=== PATIENT | female | born 1960 | race Caucasian/White ===

== ENCOUNTER 2016-12-15 00:20 | Emergency (ER) | payer OTHER ==
[~2016-12-15] VITALS: Ht 170.2 cm; Wt 133.8 kg
[2016-12-15 00:26] VITALS: BP 148/76
--- NOTE | 2016-12-15 02:12 | NUR ---
PT TAKEN TO BED 5
--- NOTE | 2016-12-15 02:14 | NUR ---
PATIENT PRESENTS TO ED WITH ABD PAIN STARTED TODAY WITH NAUSEA; SKIN IS PINK/WARM/DRY; AAOX4 WITH EVEN AND STEADY GAIT; LUNGS CLEAR BL; HR EVEN AND REGULAR; PT DENIES ANY FEVER, CP, SOB, OR COUGH AT THIS TIME; ; VSS; PATIENT POSITIONED FOR COMFORT; HOB ELEVATED; BEDRAILS UP X2; BED DOWN. ER MD MADE AWARE OF PT STATUS.
[2016-12-15] MEDS ORDERED: ONDANSETRON 4 MG/2 ML VIAL IVP ONE (02:45)
[2016-12-15] MEDS ORDERED: NACL 0.9% 500 ML IV ONE (02:45)
[2016-12-15] MEDS ORDERED: KETOROLAC 30 MG/ML VIAL IVP ONE (02:45)
--- NOTE | 2016-12-15 02:48 | NUR ---
Dr. Sarmiento evaluating patient at bedside.
[2016-12-15 03:34] LABS: HEMATOCRIT 35.4 % (36-48); HEMOGLOBIN 10.3 g/dL (12.0-16.0); MEAN CORPUSCULAR HEMOGLOBIN 21 pg (27-31); MEAN CORPUSCULAR HGB CONC 29 g/dL (33-37); MEAN CORPUSCULAR VOLUME 71 fL (80-94); PLATELET COUNT (AUTO) 225 K/uL (140-450); RED BLOOD CELL COUNT(AUTO) 5.02 MIL/uL (4.20-5.40); RED CELL DISTRIBUTION WIDTH 29.1 % (11.6-13.7); WHITE BLOOD COUNT (AUTO) 8.7 K/uL (4.8-10.8)
[2016-12-15 03:45] LABS: ANISOCYTOSIS 3+; EOSINOPHILS % (MANUAL) 8 % (0-4); LYMPHOCYTES % (MANUAL) 25 % (20-46); MONOCYTES % (MANUAL) 7 % (5-12); NEUTROPHILS % (MANUAL) 60 (43-65)
[2016-12-15 03:48] LABS: ANION GAP 12.6 (8-16); CALCIUM 8.4 mg/dL (8.5-10.1); CARBON DIOXIDE 25.3 mmol/L (21-32); CREATININE 0.9 mg/dL (0.6-1.3); POTASSIUM 3.9 mmol/L (3.5-5.1); TOTAL BILIRUBIN 0.5 mg/dL (0.0-1.0); TOTAL PROTEIN, SERUM 7.6 g/dL (6.4-8.2)
[2016-12-15 03:54] LABS: ALBUMIN 3.3 g/dL (3.4-5.0)
[2016-12-15] MEDS ORDERED: MORPHINE SULFATE 2 MG/ML SYR IVP ONE (04:05)
--- NOTE | 2016-12-15 04:30 | NUR ---
Ultrasound at bedside.
[2016-12-15 06:00] VITALS: BP 138/82
--- NOTE | 2016-12-15 06:00 | NUR ---
IV removed, catheter intact and site benign. Applied folded 4x4 gauze and tape to stop bleeding.
--- NOTE | 2016-12-15 06:00 | NUR ---
Patient discharged with v/s stable. Written and verbal after care instructions given and explained. Patient alert, oriented and verbalized understanding of instructions. Ambulatory with steady gait. All questions addressed prior to discharge. ID band removed. Patient advised to follow up with PMD. Rx of ZOFRAN ODT 4MG, PRILOSEC 40MG, NORCO 5/325MG given. Patient educated on indication of medication including possible reaction and side effects. Opportunity to ask questions provided and answered.
== END 2016-12-15 06:00 | disposition home or self-care (01) ==
LOC: MED 00:20
DX: K80.20 Calculus of gallbladder without cholecystitis without obstruction (principal); R03.0 Elevated blood-pressure reading, without diagnosis of hypertension; E66.01 Morbid (severe) obesity due to excess calories; Z68.42 Body mass index [BMI] 45.0-49.9, adult
CPT/HCPCS: 36415; 76705; 80053; 82150; 83690; 85025; 96361; 96374; 96375; 99285; J1885; J2270; J2405; J7030; Q0092

== ENCOUNTER 2019-07-06 15:26 | Inpatient (IN) | payer MEDICAID, OTHER ==
[~2019-07-06] VITALS: Ht 170.2 cm; Wt 114.3 kg
[2019-07-06] MEDS ORDERED: cloNIDine 0.1 MG TAB PO ONE (15:30)
[2019-07-06 15:35] VITALS: BP 167/69
--- NOTE | 2019-07-06 15:55 | NUR ---
58F TO ED WITH C/O SYMPTOMATIC HTN. PT REPORTS HEADACHE AND BLURRED VISION AT HOME WITH ELEVATED BP READING WITH HOME BP MACHINE. NO NEURO DEFECITS NOTED. HEALTH NURSE EQUAL. SPEECH CLEAR. NO FACIAL ASYMMETRY NOTED. IN BED FOR MD ZAMAN.
--- NOTE | 2019-07-06 15:56 | NUR ---
Dr. Espitia is evaluating the patient at the bedside.
[2019-07-06] MEDS ORDERED: ACETAMINOPHEN EXTRA STRENGTH 500 MG TAB PO ONE (16:05)
--- NOTE | 2019-07-06 16:16 | NUR ---
PT TAKEN TO CT
--- NOTE | 2019-07-06 16:27 | NUR ---
The patient returned from CT scan. RN re-evaluating patient at bedside.
[2019-07-06 16:52] LABS: BASOPHILS % (AUTO) 0.6 % (0.0-2.0); EOSINOPHILS # (AUTO) 0.2 K/uL (0-0.4); EOSINOPHILS % (AUTO) 2.9 % (0.0-4.0); HEMATOCRIT 37.6 % (36-48); HEMOGLOBIN 12.2 g/dL (12.0-16.0); LYMPHOCYTES # (AUTO) 2.4 K/uL (2.5-16.5); MEAN CORPUSCULAR HEMOGLOBIN 29 pg (27-31); MEAN CORPUSCULAR HGB CONC 33 g/dL (33-37); MEAN CORPUSCULAR VOLUME 90.6 fL (80-94); MONOCYTES # (AUTO) 0.7 K/uL (0.8-1.0); MONOCYTES % (AUTO) 8.3 % (1.7-9.3); NEUTROPHILS # (AUTO) 4.7 K/uL (1.8-7.7); NEUTROPHILS % (AUTO) 58.2 % (42.2-75.2); PLATELET COUNT (AUTO) 202 K/uL (140-450); RED BLOOD CELL COUNT(AUTO) 4.15 MIL/uL (4.20-5.40); RED CELL DISTRIBUTION WIDTH 14.2 % (11.6-13.7); WHITE BLOOD COUNT (AUTO) 8.1 K/uL (4.8-10.8)
[2019-07-06 17:36] LABS: ANION GAP 11.6 (8-16); CARBON DIOXIDE 29.1 mmol/L (21-32); POTASSIUM 3.7 mmol/L (3.5-5.1); TOTAL BILIRUBIN 0.3 mg/dL (0.0-1.0)
[2019-07-06 17:47] LABS: ALBUMIN 3.4 g/dL (3.4-5.0); CREATININE 0.7 mg/dL (0.6-1.3)
--- NOTE | 2019-07-06 17:57 | NUR ---
PT LAYING IN BED, RR EVEN AND UNLABORED. VS NOTED. HR 40-45. BP 156/72 AFTER CLONIDINE 0.2MG PO. PT REPORTS 10/10 HEADACHE DESPITE TYLENOL 1000MG PO. DR PIAZRRO MADE AWARE. ALL NEEDS MET AT THIS TIME.
[2019-07-06] MEDS ORDERED: ACETAMINOPHEN 325 MG TAB PO PRN (18:10)
[2019-07-06] MEDS ORDERED: ONDANSETRON 4 MG/2 ML VIAL IM/IVP PRN (18:10)
[2019-07-06 18:49] LABS: PROTHROMBIN TIME 10.2 secs (10.8-13.4)
[2019-07-06] MEDS ORDERED: hydrALAZINE 20 MG/ML VIAL IVP PRN (19:00)
--- NOTE | 2019-07-06 19:00 | NUR ---
Patient will be admitted to care of DR CANALES. Admited to TELE 106B. Belongings list completed. Report to MARIA ISABEL LYNN
[2019-07-06 19:15] LABS: APPEARANCE,URINE CLEAR (CLEAR); BILIRUBIN,URINE NEGATIVE (NEGATIVE); BLOOD, URINE NEGATIVE (NEGATIVE); COLOR,URINE YELLOW (YELLOW); LEUKOCYTE ESTERASE ,URINE TRACE (NEGATIVE); NITRITE, URINE NEGATIVE (NEGATIVE); UGLUCOSE NEGATIVE (NEGATIVE)
--- NOTE | 2019-07-06 19:15 | NUR ---
RECEIVED PT FROM ED VIA ESTIVEN, PT AWAKE, ALERT ORIENTED X 4. ON TELEMONITOR. WITH DX OF BRADYCARDIA. PT UPON TAKING THE V.S HR 37, BP= 143/67, TEMP 97.2; 97% O2; COMPLAINS OF DULL PAIN AT THE BACK OF THE HEAD. ORIENTED TO UNIT. FALL RISK PROTOCOL IN PLACE; WILL CONTINUE TO MONITOR
[2019-07-06 19:24] LABS: BARBITURATE, URINE NEG. ng/ml (NEG <=200); BENZODIAZEPINE, URINE NEG. ng/mL (NEG <=200); CANNABINOID, URINE NEG. ng/mL (NEG <=50); COCAINE, URINE NEG. ng/mL (NEG <=300); OPIATE, URINE POS. ng/mL (NEG <=2000); PHENCYCLIDINE SCREEN,URINE NEG. ng/mL (NEG <=25)
--- NOTE | 2019-07-06 19:30 | NUR ---
INFORMED DR. MANUEL ON THE VITAL SIGNS JAMEY THE BRADYCARDIA; ORDERED O2 VIA NASAL CANNULA AT 2LPM PRN
[2019-07-06 19:49] LABS: RBC,URINE NONE SEEN /HPF (0-5)
[2019-07-06 20:00] VITALS: BP 143/67
[2019-07-06] MEDS ORDERED: amLODIPine 5 MG TAB PO SCH (20:00)
[2019-07-06] MEDS ORDERED: LISINOPRIL 10 MG TAB PO SCH (20:00)
--- NOTE | 2019-07-06 20:00 | NUR ---
RECHECKED HR 50 BPM
[2019-07-06] MEDS: NACL 0.9% 1,000 ML IV SCH (20:18)
--- NOTE | 2019-07-06 22:15 | NUR ---
PT SLEEPING SOUNDLY; NO COMPLAINTS; STILL WITH BRADYCARDIA =[address] MANUEL AWARE, WILL CONTINUE TO MONITOR
[2019-07-06 22:53] LABS: CHOL/HDL RATIO 1.6 (1-4.5); MAGNESIUM 1.7 mg/dL (1.8-2.4); PHOSPHORUS 3.7 mg/dL (2.5-4.9)
[2019-07-06 22:54] LABS: FREE T4 (FREE THYROXINE) 1.06 ng/dL (0.76-1.46); THYROID STIMULATING HORMONE 2.15 uIU/mL (0.34-3.74)
[2019-07-07] VITALS: BP 116/60
--- NOTE | 2019-07-07 00:01 | NUR ---
PT SLEEPING SOUNDLY, NO COMPLAINTS OF HEADACHE AT THIS TIME, WILL CONTINUE TO MONITOR
--- NOTE | 2019-07-07 02:15 | NUR ---
PT STILL SLEEPING, CHECKED ON PT WILL CONTINUE TO MONITOR
[2019-07-07 04:00] VITALS: BP 124/41
--- NOTE | 2019-07-07 04:10 | NUR ---
WENT TO [facility] BATHROOM, STEADY IN GAIT, TOLERABLE HEADACHE 3/10 VERBALIZED BY PT
[2019-07-07] MEDS: KETOROLAC 15 MG/ML VIAL IVP PRN ×3 (04:51→18:16)
--- NOTE | 2019-07-07 04:51 | NUR ---
COMPLAINED OF HEADACHE 03/18 WILL REASSESS LATER
[2019-07-07] MEDS: PANTOPRAZOLE 40 MG TABEC PO SCH (06:04)
--- NOTE | 2019-07-07 06:08 | NUR ---
AWAKE; ALERT ORIENTED X 4; AMBULATORY W/ STANDBY ASSIST. PT IN STABLE CONDITION
--- NOTE | 2019-07-07 07:15 | NUR ---
RECEIVED REPORT FROM CONTAINER WASHER NURSE. PATIENT SITTING IN BED, ASSISTED TO BATHROOM AND BACK TO BED. NO DISTRESS NOTED. DENIES ANY PAIN AT THIS TIME. RESPIRATIONS EVEN, UNLABORED, ON O2 2L/MIN VIA NC. ABDOMEN SOFT, OBESE. IV SITE INTACT, PATENT, AND INFUSING IVF PER MD ORDERS. REVIEWED PLAN OF CARE WITH PATIENT. PATIENT VERBALIZED UNDERSTANDING. SAFETY MEASURES IN PLACE, CALL LIGHT WITHIN REACH. WILL CONTINUE TO MONITOR.
[2019-07-07 07:51] LABS: BASOPHILS % (AUTO) 0.7 % (0.0-2.0); EOSINOPHILS # (AUTO) 0.3 K/uL (0-0.4); HEMATOCRIT 35.2 % (36-48); HEMOGLOBIN 11.6 g/dL (12.0-16.0); LYMPHOCYTES # (AUTO) 1.9 K/uL (2.5-16.5); LYMPHOCYTES % (AUTO) 28.6 % (20.5-51.1); MEAN CORPUSCULAR HEMOGLOBIN 30 pg (27-31); MEAN CORPUSCULAR HGB CONC 33 g/dL (33-37); MEAN CORPUSCULAR VOLUME 90.8 fL (80-94); MONOCYTES # (AUTO) 0.5 K/uL (0.8-1.0); NEUTROPHILS # (AUTO) 3.9 K/uL (1.8-7.7); NEUTROPHILS % (AUTO) 58.7 % (42.2-75.2); PLATELET COUNT (AUTO) 181 K/uL (140-450); RED BLOOD CELL COUNT(AUTO) 3.87 MIL/uL (4.20-5.40); RED CELL DISTRIBUTION WIDTH 13.6 % (11.6-13.7); WHITE BLOOD COUNT (AUTO) 6.6 K/uL (4.8-10.8)
--- NOTE | 2019-07-07 07:58 | NUR ---
PATIENT HAS BEEN SCREENED AND CATEGORIZED MODERATE NUTRITION RISK. PATIENT WILL BE SEEN WITHIN 3-5 DAYS OF ADMISSION. 07/09/19 07/11/[address]
[2019-07-07 08:00] VITALS: BP 129/54
[2019-07-07 08:06] LABS: ANION GAP 11.3 (8-16); CARBON DIOXIDE 27.2 mmol/L (21-32); CREATININE 0.6 mg/dL (0.6-1.3); POTASSIUM 3.5 mmol/L (3.5-5.1)
[2019-07-07] MEDS: HYDROcodone/APAP 7.5/325 MG 1 TAB PO PRN (08:53)
[2019-07-07] MEDS: LISINOPRIL 10 MG TAB PO SCH (08:54)
[2019-07-07] MEDS: ATORVASTATIN 20 MG TAB PO SCH (08:54)
[2019-07-07] MEDS: amLODIPine 5 MG TAB PO SCH (08:55)
[2019-07-07] MEDS ORDERED: SCOPOLAMINE 1.5 MG/72 HR PATCH TD SCH (09:00)
--- NOTE | 2019-07-07 09:00 | NUR ---
SCHEDULED MEDICATIONS DUE GIVEN. WILL CONTINUE TO MONITOR.
[2019-07-07] MEDS: NACL 0.9% 1,000 ML IV SCH ×3 (09:08→23:23)
[2019-07-07 12:00] VITALS: BP 139/62
--- NOTE | 2019-07-07 12:16 | NUR ---
PATIENT COMPLAINS OF A HEADACHE, TORADOL GIVEN AT THIS TIME. WILL CONTINUE TO MONITOR.
[2019-07-07] MEDS ORDERED: MAGNESIUM OXIDE 400 MG TAB PO SCH (14:00)
--- NOTE | 2019-07-07 14:24 | NUR ---
PATIENT LYING DOWN IN BED TALKING ON THE PHONE. NO DISTRESS NOTED. SCHEDULED MEDICATIONS DUE GIVEN. WILL CONTINUE OT MONITOR.
[2019-07-07 16:00] VITALS: BP 144/55
--- NOTE | 2019-07-07 19:20 | NUR ---
GAVE REPORT TO EARLY CHILDHOOD EDUCATION INSTRUCTOR NURSE FOR CONTINUITY OF CARE. PATIENT IN STABLE CONDITION.
--- NOTE | 2019-07-07 19:21 | NUR ---
RECEIVED BEDSIDE REPORT FROM DAY SHIFT NURSENATA. PATIENT SITTING IN BED. NO DISTRESS NOTED. DENIES ANY PAIN AT THIS TIME. RESPIRATIONS EVEN, UNLABORED ON ROOM AIR. ABDOMEN SOFT, OBESE. IV SITE ON RFA, 20G, INTACT, PATENT, AND ASYMPTOMATIC. REVIEWED PLAN OF CARE WITH PATIENT. PATIENT VERBALIZED UNDERSTANDING. SAFETY MEASURES IN PLACE, CALL LIGHT WITHIN REACH. WILL CONTINUE TO MONITOR.
[2019-07-07 20:00] VITALS: BP 149/75
--- NOTE | 2019-07-07 20:10 | NUR ---
GIVEN HEPARIN MD ORDERED. PT TOLERATED WELL. WILL CONTINUE TO MONITOR.
--- NOTE | 2019-07-07 22:05 | NUR ---
PT WALKING AROUND UNIT. PT STATES NO DIZZINESS NOTED. STEADY GAIT. NO ACUTE DISTRESS NOTED. WILL CONTINUE TO MONITOR.
[2019-07-08] VITALS: BP 100/56
[2019-07-08] MEDS: KETOROLAC 15 MG/ML VIAL IVP PRN ×2 (00:05→06:14)
--- NOTE | 2019-07-08 00:05 | NUR ---
PT C/O HEADACHE, GIVEN TORADOL MD ORDERED. PT TOLERATED WELL. VS CHECKED, WITHIN PT'S BASELINE. WILL CONTINUE TO MONITOR.
--- NOTE | 2019-07-08 02:02 | NUR ---
PT SLEEPING IN BED. NO ACUTE DISTRESS NOTED. BED IN LOW POSITION, CALL LIGHT WITHIN REACH.
[2019-07-08 04:00] VITALS: BP 144/45
--- NOTE | 2019-07-08 04:09 | NUR ---
VS CHECKED. WITHIN PT'S BASELINE. BED IN LOW POSITION. CALL LIGHT WITHIN REACH.
[2019-07-08] MEDS: HYDROcodone/APAP 7.5/325 MG 1 TAB PO PRN (04:29)
--- NOTE | 2019-07-08 04:29 | NUR ---
PT C/O 02/16 HEADACHE. GIVEN NORCO MD ORDERED. PT TOLERATED WELL.
[2019-07-08] MEDS: PANTOPRAZOLE 40 MG TABEC PO SCH (06:13)
--- NOTE | 2019-07-08 06:14 | NUR ---
GIVEN PROTONIX. PT C/O HEADACHE, GIVEN TORADOL MD ORDERED. PT TOLERATE WELL.
--- NOTE | 2019-07-08 06:40 | NUR ---
PT SLEEPING IN BED. NO ACUTE DISTRESS NOTED.
--- NOTE | 2019-07-08 07:15 | NUR ---
RECEIVED REPORT FROM EKG MONITOR TECH. PATIENT LYING DOWN IN BED SLEEPING, AROUSABLE BY VOICE. NO DISTRESS NOTED. DENIES ANY PAIN. AAOX4, CALM, COOPERATIVE, SKIN COLOR APPROPRIATE TO ETHNICITY, WARM TO TOUCH. SKIN INTACT. IV SITE INTACT, PATENT, AND INFUSING IVF PER MD ORDERS. ABDOMEN SOFT, NON-DISTENDED. RESPIRATIONS EVEN, UNLABORED, ON ROOM AIR. REVIEWED PLAN OF CARE WITH PATIENT. PATIENT VERBALIZED UNDERSTANDING. SAFETY MEASURES IN PLACE, CALL LIGHT WITHIN REACH. WILL CONTINUE TO MONITOR.
[2019-07-08 08:00] VITALS: BP 146/56
[2019-07-08] MEDS ORDERED: APAP/BUTAL/CAFF 325/50/40 MG 1 TAB PO PRN (08:20)
[2019-07-08] MEDS: ATORVASTATIN 20 MG TAB PO SCH (08:49)
[2019-07-08] MEDS: amLODIPine 5 MG TAB PO SCH (08:50)
[2019-07-08] MEDS: LISINOPRIL 10 MG TAB PO SCH (08:50)
--- NOTE | 2019-07-08 08:57 | NUR ---
PATIENT LYING DOWN IN BED SLEEPING, AROUSABLE BY VOICE. NO DISTRESS NOTED. DENIES ANY PAIN. SCHEDULED MEDICATIONS DUE GIVEN. WILL CONTINUE TO MONITOR.
[2019-07-08] MEDS ORDERED: LACTULOSE 20 GM/30 ML UDC PO SCH (09:15)
[2019-07-08 09:22] LABS: BASOPHILS % (AUTO) 0.5 % (0.0-2.0); EOSINOPHILS # (AUTO) 0.3 K/uL (0-0.4); EOSINOPHILS % (AUTO) 4.6 % (0.0-4.0); HEMATOCRIT 37.7 % (36-48); HEMOGLOBIN 12.2 g/dL (12.0-16.0); LYMPHOCYTES # (AUTO) 1.9 K/uL (2.5-16.5); LYMPHOCYTES % (AUTO) 29.2 % (20.5-51.1); MEAN CORPUSCULAR HEMOGLOBIN 29 pg (27-31); MEAN CORPUSCULAR HGB CONC 32 g/dL (33-37); MEAN CORPUSCULAR VOLUME 90.5 fL (80-94); MONOCYTES # (AUTO) 0.5 K/uL (0.8-1.0); MONOCYTES % (AUTO) 8.2 % (1.7-9.3); NEUTROPHILS # (AUTO) 3.8 K/uL (1.8-7.7); NEUTROPHILS % (AUTO) 57.5 % (42.2-75.2); PLATELET COUNT (AUTO) 191 K/uL (140-450); RED BLOOD CELL COUNT(AUTO) 4.16 MIL/uL (4.20-5.40); RED CELL DISTRIBUTION WIDTH 14.2 % (11.6-13.7); WHITE BLOOD COUNT (AUTO) 6.7 K/uL (4.8-10.8)
[2019-07-08] MEDS ORDERED: LISI10TA11 PO ×2 (09:25→11:46)
[2019-07-08] MEDS ORDERED: AMLO5TAB6 PO ×2 (09:25→11:46)
[2019-07-08] MEDS ORDERED: SCOP1PAT TD (09:25)
[2019-07-08] MEDS ORDERED: FIO PO (09:25)
[2019-07-08] MEDS ORDERED: ATOR20TA40 PO ×2 (09:25→11:46)
--- NOTE | 2019-07-08 09:32 | NUR ---
PATIENT SITTING IN BED TALKING ON THE PHONE. NO DISTRESS NOTED. DENIES ANY PAIN. SCHEDULED MEDICATIONS DUE GIVEN. WILL CONTINUE TO MONITOR.
[2019-07-08] MEDS ORDERED: SCOP1PAT TP ×2 (09:49→11:46)
[2019-07-08 09:59] LABS: ANION GAP 12.1 (8-16); CARBON DIOXIDE 25.4 mmol/L (21-32); CREATININE 0.6 mg/dL (0.6-1.3); POTASSIUM 3.5 mmol/L (3.5-5.1)
[2019-07-08 10:08] LABS: MAGNESIUM 1.7 mg/dL (1.8-2.4); PHOSPHORUS 4.2 mg/dL (2.5-4.9)
--- NOTE | 2019-07-08 12:17 | NUR ---
DISCHARGE INSTRUCTIONS PROVIDED TO PATIENT IN PREFERRED LANGUAGE OF TAIWANESE. INSTRUCTIONS ON NEW/CHANGED MEDICATION REGIMEN AND SIDE EFFECTS, DIET REGIMEN, DISEASE MANAGEMENT OF BRADYCARDIA, AND FOLLOW-UP WITH PCP WITH DR. BECERRIL. ANSWERED ALL OF PATIENT'S QUESTIONS REGARDING DISCHARGE. PATIENT VERBALIZED COMPLETE UNDERSTANDING. IV SITE REMOVED WITH MINIMAL BLOOD AND LUMEN COMPLETELY INTACT. PATIENT TO GET DRESSED AND THEN READY TO DISCHARGE. DAUGHTER TO COME AIR CARRIER MAINTENANCE INSPECTOR PATIENT SOON. WILL CONTINUE TO MONITOR.
--- NOTE | 2019-07-08 14:00 | NUR ---
PATIENT DONE EATING LUNCH. ALL BELONGINGS WITH PATIENT. PATIENT'S DAUGHTER AT BEDSIDE READY TO TAKE PATIENT HOME IN PRIVATE VEHICLE. PATIENT DISCHARGED AT THIS TIME TO HOME IN STABLE CONDITION.
== END 2019-07-08 14:00 | disposition home or self-care (01) | DRG 199 ==
LOC: MED 15:26 → MTU 18:11 → MMU 19:19 → MTU 19:21 → MMU 19:24 → MTU 19:26
PROVIDERS: ADMIT General Practice; ATTEND General Practice
DX: I10 Essential (primary) hypertension (principal); E87.0 Hyperosmolality and hypernatremia; E66.01 Morbid (severe) obesity due to excess calories; R00.1 Bradycardia, unspecified; E78.5 Hyperlipidemia, unspecified; E83.42 Hypomagnesemia; K21.9 Gastro-esophageal reflux disease without esophagitis; Z68.39 Body mass index [BMI] 39.0-39.9, adult; Z98.84 Bariatric surgery status
CPT/HCPCS: 36415; 70450; 71045; 80048; 80053; 80305; 81001; 82140; 82550; 82553; 82948; 83036; 83605; 83690; 83735; 83880; 84100; 84439; 84443; 84484; 85025; 85610; 85730; 87081; 87086; 93005; 93880; 99285; J1644; J1885; J7030; Q0092

== ENCOUNTER 2019-09-02 16:19 | Inpatient (IN) | payer MEDICAID ==
[~2019-09-02] VITALS: Ht 170.2 cm; Wt 113.4 kg
[~2019-09-02 16:19] MED LIST: AMLO5TAB6 PO; ATOR20TA40 PO; FIO PO; LISI10TA11 PO; SCOP1PAT TP
[2019-09-02 16:39] VITALS: BP 126/57
--- NOTE | 2019-09-02 16:50 | NUR ---
PT AMB TO BED 10
--- NOTE | 2019-09-02 17:02 | NUR ---
C/O PRODUCTIVE COUGH & SOB X 2 DAYS. NO EXACERBATING OR RELIEVING FACTORS FOR SOB. STATES RHINORRHEA, NASAL CONGESTION, BODY ACHE. DENIES N/V. TOOK TYLENOL LAST NIGHT FOR SUBJECTIVE FEVER. HAD FLU VACCINE THIS YEAR. 96% RA. MED HX: LYMPHEDEMA, HTN, GOUT, GASTRIC BY PASS ALLEGY: IBUPREFEN & ANTIBIOTIC ???
--- NOTE | 2019-09-02 17:06 | NUR ---
DR PIZARRO EVALUATING PT AT BEDSIDE
[2019-09-02] MEDS ORDERED: hydrOXYzine HCL 25 MG TAB PO ONE (17:15)
[2019-09-02] MEDS ORDERED: FUROSEMIDE 40 MG/4 ML VIAL IVP ONE (17:15)
[2019-09-02] MEDS ORDERED: ALBUTEROL SULFATE/IPRATROPIU 3 ML SOL IH ONE (17:15)
[2019-09-02] MEDS ORDERED: CAPTOPRIL 12.5 MG TAB PO ONE (17:15)
--- NOTE | 2019-09-02 17:23 | NUR ---
GENERAL ENGINEER AND RT AT BEDSIDE.
--- NOTE | 2019-09-02 17:26 | NUR ---
[facility] THERAPY AND RESPPIRATORY DRUG GIVEN ORDERED ENCOURAGED PATIENT FOR INTERMITTENT DEEP BREATHING DURING THERAPY
[2019-09-02 17:42] LABS: BASOPHILS % (AUTO) 0.3 % (0.0-2.0); EOSINOPHILS # (AUTO) 0.2 K/uL (0-0.4); EOSINOPHILS % (AUTO) 1.6 % (0.0-4.0); HEMATOCRIT 38.9 % (36-48); HEMOGLOBIN 12.6 g/dL (12.0-16.0); LYMPHOCYTES % (AUTO) 19.4 % (20.5-51.1); MEAN CORPUSCULAR HEMOGLOBIN 29 pg (27-31); MEAN CORPUSCULAR HGB CONC 32 g/dL (33-37); MEAN CORPUSCULAR VOLUME 89.3 fL (80-94); MONOCYTES # (AUTO) 0.7 K/uL (0.8-1.0); MONOCYTES % (AUTO) 6.8 % (1.7-9.3); NEUTROPHILS # (AUTO) 7.6 K/uL (1.8-7.7); NEUTROPHILS % (AUTO) 71.9 % (42.2-75.2); PLATELET COUNT (AUTO) 215 K/uL (140-450); RED BLOOD CELL COUNT(AUTO) 4.35 MIL/uL (4.20-5.40); RED CELL DISTRIBUTION WIDTH 13.9 % (11.6-13.7); WHITE BLOOD COUNT (AUTO) 10.5 K/uL (4.8-10.8)
[2019-09-02 18:01] LABS: PROTHROMBIN TIME 13.1 secs (10.8-13.4)
[2019-09-02 18:17] LABS: C-REACTIVE PROTEIN QUANT 1.8 mg/dL (0.0-0.9)
[2019-09-02 18:18] LABS: MAGNESIUM 1.6 mg/dL (1.8-2.4); URIC ACID 5.3 mg/dL (2.6-7.2)
[2019-09-02 18:21] LABS: ANION GAP 14.7 (8-16); CARBON DIOXIDE 25.9 mmol/L (21-32); CREATININE 0.7 mg/dL (0.6-1.3); POTASSIUM 3.6 mmol/L (3.5-5.1)
[2019-09-02 18:22] LABS: ALBUMIN 3.2 g/dL (3.4-5.0); TOTAL BILIRUBIN 0.4 mg/dL (0.0-1.0)
--- NOTE | 2019-09-02 18:27 | NUR ---
PT WILL SEND DAUGHTER HOME TO GET MED LIST.
[2019-09-02] MEDS ORDERED: NACL 0.9% 1,000 ML IV SCH (19:09)
[2019-09-02] MEDS ORDERED: MORPHINE SULFATE 2 MG/ML SYR IVP PRN (19:10)
[2019-09-02] MEDS ORDERED: DOCUSATE SODIUM 100 MG GELCAP PO PRN (19:10)
[2019-09-02] MEDS ORDERED: ONDANSETRON 4 MG/2 ML VIAL IM/IVP PRN (19:10)
[2019-09-02] MEDS ORDERED: ACETAMINOPHEN 325 MG TAB PO PRN (19:10)
[2019-09-02] MEDS ORDERED: LORazepam 2 MG/ML VIAL IM/IVP PRN (19:10)
[2019-09-02] MEDS ORDERED: ALBUTEROL SULFATE/IPRATROPIU 3 ML SOL IH PRN (19:15)
--- NOTE | 2019-09-02 19:15 | NUR ---
REPORT TO HARI LYNN. TRANSFER OF CARE AT THIS TIME.
[2019-09-02] MEDS ORDERED: LISI-420 PO (19:29)
[2019-09-02] MEDS ORDERED: ATOR10TA PO (19:29)
[2019-09-02] MEDS ORDERED: HYDR-5092 PO (19:29)
[2019-09-02] MEDS ORDERED: OMEP20TC12 PO (19:29)
[2019-09-02] MEDS ORDERED: DOCU-300 PO (19:29)
[2019-09-02 20:13] LABS: CHOL/HDL RATIO 1.6 (1-4.5); MAGNESIUM 1.7 mg/dL (1.8-2.4); PHOSPHORUS 3.2 mg/dL (2.5-4.9); THYROID STIMULATING HORMONE 0.78 uIU/mL (0.34-3.74)
--- NOTE | 2019-09-02 20:37 | NUR ---
RECEIVED BEDSIDE REPORT FROM ER NURSE. PATIENT IS AWAKE, ALERT, AND COOPERATIVE. ADMITTING DIAGNOSIS DYSPNEA, CARDIAC BRADYARRHYTHMIA. RESPIRATION EVEN UNLABORED ON ROOM AIR. NO DISTRESS NOTED. DENIES CHEST PAIN. SKIN IS WARM AND DRY. IV PATENT AND INTACT. HEART RATE REGULAR. S1&S2 NOTE. LUNGS SOUNDS CLEAR ON AUSCULTATION. BOWEL SOUNDS PRESENTS IN ALL QUADRANTS. ABDOMEN SOFT AND NON-TENDER. LAST BM 09/02/19. BLE PITTING EDEMA + 1 NOTED. MRSA SCREEN DONE. VITALS WERE TAKEN. ORIENT TO THE ROOM, STAFF, AND CALL LIGHT. PLAN OF CARE WAS DISCUSSED. ALL SAFETY MEASURES IN PLACE. BED IS AT LOW POSITION. CALL LIGHT WITHIN REACH AND VERBALIZE ITS USE. WILL CONTINUE TO MONITOR.
--- NOTE | 2019-09-02 20:37 | NUR ---
Patient will be admitted to care of [facility]. Admited to TELEMETRY. Will go to room 121 A. Belongings list completed. Report to TRINIDAD LYNN.
[2019-09-02] MEDS: HYDROcodone/APAP 5/325 MG 1 TAB TAB PO PRN (21:20)
--- NOTE | 2019-09-02 21:20 | NUR ---
PATIENT COMPLAINED OF GENERALIZED PAIN 6/10. PRN PAIN MED ADMINISTERED PER ORDER. WILL CONTINUE TO MONITOR
[2019-09-02] MEDS: ZOLPIDEM 5 MG TAB PO PRN (21:58)
--- NOTE | 2019-09-02 21:58 | NUR ---
PATIENT COMPLAINED CANT FALL ASLEEP. PRN SLEEPING AID ADMINISTERED PER ORDER. WILL CONTINUE TO MONITOR.
[2019-09-02 22:35] VITALS: BP 144/72
--- NOTE | 2019-09-02 23:30 | NUR ---
PATIENT IS TALKING ON THE PHONE NO DISTRESS NOTED. WILL CONTINUE TO MONITOR.
[2019-09-03] VITALS: BP 115/48
[2019-09-03] MEDS ORDERED: MAG SULF 2000 MG/WATER PREMIX 50 ML IV SCH
--- NOTE | 2019-09-03 00:10 | NUR ---
VITALS WERE TAKEN. PATIENT IN STABLE CONDITION. NO DISTRESS NOTED. WILL CONTINUE TO MONITOR.
--- NOTE | 2019-09-03 01:37 | NUR ---
MAGNESIUM SULFATE GIVEN PER ORDER. PATIENT COMPLAINING OF BURNING PAIN. NOTIFIED MD. . ORDERED TO STOP MAGNESIUM. WILL CONTINUE TO MONITOR.
[2019-09-03] MEDS ORDERED: MAGNESIUM OXIDE 400 MG TAB PO SCH ×2 (02:00→10:35)
[2019-09-03] MEDS: HYDROcodone/APAP 5/325 MG 1 TAB TAB PO PRN ×4 (02:01→19:35)
--- NOTE | 2019-09-03 02:03 | NUR ---
MAG OX TAB GIVEN PER ORDER, PATIENT COMPLAINED OF GENERALIZED PAIN 02/16. PRN PAIN MED ADMINISTERED PER ORDER. WILL CONTINUE TO MONITOR.
[2019-09-03 04:00] VITALS: BP 110/46
--- NOTE | 2019-09-03 04:20 | NUR ---
VITALS WERE TAKEN. PATIENT IN STABLE CONDITION. NO DISTRESS NOTED. WILL CONTINUE TO MONITOR
[2019-09-03] MEDS: PANTOPRAZOLE 40 MG TABEC PO SCH (05:41)
[2019-09-03] MEDS ORDERED: ALBUTEROL SULFATE/IPRATROPIU 3 ML SOL IH SCH (06:00)
[2019-09-03 06:52] LABS: BASOPHILS % (AUTO) 0.1 % (0.0-2.0); EOSINOPHILS # (AUTO) 0.2 K/uL (0-0.4); EOSINOPHILS % (AUTO) 1.8 % (0.0-4.0); HEMATOCRIT 35.9 % (36-48); HEMOGLOBIN 11.7 g/dL (12.0-16.0); LYMPHOCYTES % (AUTO) 20.3 % (20.5-51.1); MEAN CORPUSCULAR HEMOGLOBIN 29 pg (27-31); MEAN CORPUSCULAR HGB CONC 33 g/dL (33-37); MEAN CORPUSCULAR VOLUME 90.4 fL (80-94); MONOCYTES # (AUTO) 0.9 K/uL (0.8-1.0); MONOCYTES % (AUTO) 8.6 % (1.7-9.3); NEUTROPHILS # (AUTO) 6.9 K/uL (1.8-7.7); NEUTROPHILS % (AUTO) 69.2 % (42.2-75.2); PLATELET COUNT (AUTO) 200 K/uL (140-450); RED BLOOD CELL COUNT(AUTO) 3.97 MIL/uL (4.20-5.40); RED CELL DISTRIBUTION WIDTH 14.1 % (11.6-13.7)
[2019-09-03 07:14] LABS: ANION GAP 13.7 (8-16); CARBON DIOXIDE 26.6 mmol/L (21-32); CREATININE 0.7 mg/dL (0.6-1.3); POTASSIUM 3.3 mmol/L (3.5-5.1)
[2019-09-03 07:14] LABS: APPEARANCE,URINE CLOUDY (CLEAR); BILIRUBIN,URINE NEGATIVE (NEGATIVE); BLOOD, URINE NEGATIVE (NEGATIVE); COLOR,URINE YELLOW (YELLOW); LEUKOCYTE ESTERASE ,URINE 1+ (NEGATIVE); NITRITE, URINE NEGATIVE (NEGATIVE); PH,URINE 5.5 (5.0-9.0); UGLUCOSE NEGATIVE (NEGATIVE)
--- NOTE | 2019-09-03 07:14 | NUR ---
ENDORSED PATIENT TO DAY SHIFT NURSE. PATIENT IN STABLE CONDITION
[2019-09-03 07:18] LABS: BARBITURATE, URINE NEG. ng/ml (NEG <=200); BENZODIAZEPINE, URINE NEG. ng/mL (NEG <=200); CANNABINOID, URINE NEG. ng/mL (NEG <=50); COCAINE, URINE NEG. ng/mL (NEG <=300); OPIATE, URINE POS. ng/mL (NEG <=2000); PHENCYCLIDINE SCREEN,URINE NEG. ng/mL (NEG <=25)
[2019-09-03 07:21] LABS: MAGNESIUM 1.7 mg/dL (1.8-2.4)
--- NOTE | 2019-09-03 07:25 | NUR ---
RECEIVED BEDSIDE REPORT FROM MACHINE CLOTHING WORKER NURSE, PT IS ASLEEP, NO S/S OF ACUTE DISTRESS NOTED. PT IS ON ROOM AIR, SKIN IS INTACT. IV SITE R WRIST 20 G, INFUSING NS 60 ML/HR. FALL PRECAUTIONS ARE IN PLACE. CALL LIGHT IS WITHIN REACH. WILL CONTINUE TO MONITOR.
[2019-09-03 07:34] LABS: RBC,URINE 0-5 /HPF (0-5)
[2019-09-03 08:00] VITALS: BP 138/48
--- NOTE | 2019-09-03 08:25 | NUR ---
PT IS HAVING BLE US AT THIS TIME
--- NOTE | 2019-09-03 09:07 | NUR ---
PATIENT HAS BEEN SCREENED AND CATEGORIZED HIGH NUTRITION RISK. PATIENT WILL BE SEEN WITHIN 1-2 DAYS OF ADMISSION. 09/03/19-09/04/[address]
[2019-09-03] MEDS ORDERED: BENZONATATE 100 MG CAPLF PO SCH (09:25)
[2019-09-03] MEDS: LISINOPRIL 20 MG TAB PO SCH (09:37)
[2019-09-03] MEDS: amLODIPine 5 MG TAB PO SCH (09:37)
--- NOTE | 2019-09-03 09:40 | NUR ---
AM MEDS ADMINISTERED, PT TOLERATED WELL. PT C/O 05/19 GENERALIZED PAIN, PRN NORCO ADMINISTERED. WILL REASSESS WITHIN AN HOUR. PT HAVING A BM AT THIS TIME.
--- NOTE | 2019-09-03 09:46 | NUR ---
DR MCCURDY MADE AWARE OF PT'S POTASSIUM 3.3, AND MAG 1.7.
[2019-09-03] MEDS ORDERED: AZITHROMYCIN 250 MG TAB PO SCH (10:34)
[2019-09-03] MEDS ORDERED: POTASSIUM CHLORIDE 10 MEQ TABER PO SCH (10:35)
--- NOTE | 2019-09-03 11:10 | NUR ---
DC PLANN[age] YRS OLD FEMALE PATIENT WAS ADMITTED FROM HOME WITH A DX OF CHEST PAIN . PT HAS A HX OF RECENT GASTRIC BYPASS 10 MONTH AGO, HTN, CHRONIC LYMPHOEDEMA AND HYPERLIPIDEMIA. CXR MODERATE CARDIOMEGALY, TROP NEGATIVE RT PROTOCOL AND CARD CLEANER CONSULT. DC PLAN PER CARDIOLOGY TO GO HOME WHEN STABLE CM TO FOLLOW.
[2019-09-03 12:00] VITALS: BP 122/56
[2019-09-03 16:00] VITALS: BP 115/58
--- NOTE | 2019-09-03 19:15 | NUR ---
ENDORSED PT TO GRIEF COUNSELOR NURSE IN STABLE CONDITION
--- NOTE | 2019-09-03 19:27 | NUR ---
RECEIVED BEDSIDE REPORT FROM DAY SHIFT NURSE. PATIENT IS AWAKE, ALERT, AND COOPERATIVE. RESPIRATION EVEN UNLABORED ON ROOM AIR. NO DISTRESS NOTED. SKIN IS WARM AND DRY. IV PATENT AND INTACT. PLAN OF CARE DISCUSSED ALL SAFETY MEASURES IN PLACE. BED IS AT LOW POSITION. CALL LIGHT WITHIN REACH AND VERBALIZES ITS USE. WILL CONTINUE TO MONITOR.
--- NOTE | 2019-09-03 19:35 | NUR ---
PATIENT COMPLAINED OF GENERALIZED PAIN 8/10 PRN PAIN MED ADMINISTERED PER ORDER. WILL CONTINUE TO MONITOR.
[2019-09-03 20:00] VITALS: BP 148/69
--- NOTE | 2019-09-03 20:11 | NUR ---
INITIAL ASSESSMENT DONE. VITALS WERE TAKEN. PLACE PATIENT IN SALINE LOCK. PATIENT IN STABLE CONDITION. NO DISTRESS NOTED. WILL CONTINUE TO MONITOR.
--- NOTE | 2019-09-03 20:45 | NUR ---
ALL SCHEDULED MEDS WERE GIVEN PER ORDER. NO ASE NOTED. WILL CONTINUE TO MONITOR.
[2019-09-03] MEDS ORDERED: ATORVASTATIN 20 MG TAB PO SCH (21:00)
[2019-09-03] MEDS: ZOLPIDEM 5 MG TAB PO PRN (21:14)
--- NOTE | 2019-09-03 21:14 | NUR ---
PATIENT CANT FALL ASLEEP ASKED FOR PRN SLEEPING AID. PRN SLEEPING AID GIVEN PER ORDER. WILL CONTINUE TO MONITOR.
--- NOTE | 2019-09-03 22:30 | NUR ---
CHECKED PATIENT. PATIENT SLEEPING RESPIRATION EVEN UNLABORED ON ROOM AIR. NO DISTRESS NOTED. WILL CONTINUE TO MONITOR.
[2019-09-04] VITALS: BP 125/75
--- NOTE | 2019-09-04 00:12 | NUR ---
VITALS WERE TAKEN. PATIENT IN STABLE CONDITION. NO DISTRESS NOTED. WILL CONTINUE TO MONITOR.
--- NOTE | 2019-09-04 02:08 | NUR ---
CHECKED PATIENT. PATIENT SLEEPING RESPIRATION EVEN UNLABORED ON ROOM AIR. NO DISTRESS NOTED. WILL CONTINUE TO MONITOR.
[2019-09-04 04:00] VITALS: BP 141/59
--- NOTE | 2019-09-04 04:00 | NUR ---
VITALS WERE TAKEN. PATIENT IN STABLE CONDITION. NO DISTRESS NOTED. WILL CONTINUE TO MONITOR.
[2019-09-04] MEDS: PANTOPRAZOLE 40 MG TABEC PO SCH (05:58)
--- NOTE | 2019-09-04 06:47 | NUR ---
PATIENT REFUSED BLOOD DRAWN. EDUCATED THE RISK AND BENEFITS X2 STILL REFUSED.
--- NOTE | 2019-09-04 07:10 | NUR ---
ENDORSED PATIENT TO DAY SHIFT NURSE. PATIENT IN STABLE CONDITION.
[2019-09-04 08:00] VITALS: BP 129/72
--- NOTE | 2019-09-04 08:00 | NUR ---
RECEIVED REPORT FROM SAND BOBBER. PATIENT IS SLEEPING. VISIBLE CHEST RISE AND FALL. NO RESPIRATORY DISTRESS NOTED. PATIENT IS ON FULL CODE. ALLERGIES TO ASPIRIN AND IBUPROFEN. AA0X4. CARDIAC DIET. ON ROOM AIR. WILL CONTINUE TO THE PLAN OF CARE
--- NOTE | 2019-09-04 08:15 | NUR ---
PATIENT HAS BEEN RE-SCREENED AND CATEGORIZED MODERATE NUTRITION RISK. PATIENT WILL BE SEEN WITHIN 3-5 DAYS OF ADMISSION. [address]
--- NOTE | 2019-09-04 08:15 | NUR ---
ADMINISTERED MORNING MEDICATIONS TO PATIENT. PATIENT TOLERATED PO WELL. PATIENT STATED THAT SHE ONLY TAKES LISINOPRIL AT HOME, WITHHELD NORVASC. PATIENT REFUSED HEPARIN INJECTION. EXPLAINED RISKS/BENEFITS TO REFUSAL, PT VERBALIZED UNDERSTANDING
[2019-09-04] MEDS: LISINOPRIL 20 MG TAB PO SCH (08:16)
[2019-09-04] MEDS: HYDROcodone/APAP 5/325 MG 1 TAB TAB PO PRN (08:16)
--- NOTE | 2019-09-04 08:16 | NUR ---
ADMINISTERED NORCO FOR PAIN 02/16. VITAL SIGNS WNL PRIOR TO ADMINISTRATION.
[2019-09-04] MEDS: amLODIPine 5 MG TAB PO SCH (08:18)
[2019-09-04] MEDS ORDERED: AZIT250T3 PO (08:48)
[2019-09-04] MEDS ORDERED: POTASSIUM CHLORIDE 10 MEQ TABER PO SCH (09:00)
[2019-09-04] MEDS ORDERED: AZITHROMYCIN 250 MG TAB PO SCH (09:00)
[2019-09-04] MEDS ORDERED: MAGNESIUM OXIDE 400 MG TAB PO SCH (09:00)
--- NOTE | 2019-09-04 10:25 | NUR ---
SPOKE TO PT REGARDING DISCHARGE PLANNING. COMPLETED DC PAPERWORK, WILL HAVE PT SIGN. WILL EDUCATE PT ON DC PLAN. PT CURRENTLY SLEEPING. VISIBLE CHEST RISE AND FALL. PT SAID SHE WILL BE PICKED UP AT 12OO
--- NOTE | 2019-09-04 10:50 | NUR ---
PT SIGNED D/C PAPERWORK. EDUCATED PT ON D/C MEDICATION AND SCHEDULING APPOINTMENT WITH PCP IN 3-5DAYS, PT VERBALIZED UNDERSTANDING.
--- NOTE | 2019-09-04 11:30 | NUR ---
REMOVED PT IV LINE, CANNULA INTACT. REMOVED WRISTBANDS, TELE MONITOR. PT CHANGED INTO CLOTHING FROM HOME.
--- NOTE | 2019-09-04 11:40 | NUR ---
PT HAS BEEN D/C TO HOME FROM UNIT VIA WHEELCHAIR. FAMILY MEMBERS IN FRONT LOBBY TO TAKE PT HOME. ALL BELONGINGS SENT WITH PT.
== END 2019-09-04 11:35 | disposition home or self-care (01) | DRG 201 ==
LOC: MED 16:19 → MTU 19:09
PROVIDERS: ADMIT General Practice; ATTEND General Practice
DX: I49.8 Other specified cardiac arrhythmias (principal); I42.9 Cardiomyopathy, unspecified; E44.0 Moderate protein-calorie malnutrition; E83.42 Hypomagnesemia; J40 Bronchitis, not specified as acute or chronic; E66.9 Obesity, unspecified; K21.9 Gastro-esophageal reflux disease without esophagitis; I10 Essential (primary) hypertension; E78.5 Hyperlipidemia, unspecified; E87.6 Hypokalemia; Z68.39 Body mass index [BMI] 39.0-39.9, adult; Z88.1 Allergy status to other antibiotic agents; Z88.8 Allergy status to other drugs, medicaments and biological substances; Z98.84 Bariatric surgery status; Z79.899 Other long term (current) drug therapy
CPT/HCPCS: 36415; 71045; 80048; 80053; 80305; 81001; 83036; 83690; 83735; 83880; 84100; 84134; 84443; 84484; 84550; 85025; 85379; 85610; 85730; 86140; 87081; 87086; 87804; 93005; 93970; 94640; 96374; 99285; J1644; J1940; J3475; J7030; J7620; Q0092

== ENCOUNTER 2019-09-16 21:20 | Emergency (ER) | payer MEDICAID ==
[~2019-09-16] VITALS: Ht 170.2 cm; Wt 116.1 kg
[~2019-09-16 21:20] MED LIST changes: +ATOR10TA PO; -ATOR20TA40 PO; +AZIT250T3 PO; +DOCU-300 PO; +HYDR-5092 PO; +LISI-420 PO; -LISI10TA11 PO; +OMEP20TC12 PO; -SCOP1PAT TP
[2019-09-16 21:35] VITALS: BP 140/74
--- NOTE | 2019-09-16 21:35 | NUR ---
58 Y/O FEMALE C/O LOWER BACK PAIN THAT SHOOTS UP TO THE UPPR BACK X TODAY. DENIES ANY FALL, INJURY OR TRAUMA. RATES PAIN 10/10 AND DESCRIBES IT PRESSURE. A & O X4. STEADY GAIT. LEGS SHOWS BILAT LEG LYMPHEDEMA +3 PITTING. VSS. DENIES BLOOD IN URINE OR DYSURIA. ALLERGIES: IBUPROFE, ASPIRIN PMH: GASTRIC BYPASS, HTN, GOUT, ANEMIA, LOW HR, LYMPHEDEMA ON BILAT LEGS
[2019-09-16] MEDS: LORazepam 1 MG TAB PO ONE (22:48)
[2019-09-16 22:52] LABS: BASOPHILS % (AUTO) 0.3 % (0.0-2.0); EOSINOPHILS # (AUTO) 0.3 K/uL (0-0.4); EOSINOPHILS % (AUTO) 2.7 % (0.0-4.0); HEMATOCRIT 36.6 % (36-48); HEMOGLOBIN 11.8 g/dL (12.0-16.0); LYMPHOCYTES # (AUTO) 2.1 K/uL (2.5-16.5); LYMPHOCYTES % (AUTO) 22.2 % (20.5-51.1); MEAN CORPUSCULAR HEMOGLOBIN 29 pg (27-31); MEAN CORPUSCULAR HGB CONC 32 g/dL (33-37); MEAN CORPUSCULAR VOLUME 89.8 fL (80-94); MONOCYTES # (AUTO) 0.7 K/uL (0.8-1.0); MONOCYTES % (AUTO) 7.4 % (1.7-9.3); NEUTROPHILS # (AUTO) 6.3 K/uL (1.8-7.7); NEUTROPHILS % (AUTO) 67.4 % (42.2-75.2); PLATELET COUNT (AUTO) 190 K/uL (140-450); RED BLOOD CELL COUNT(AUTO) 4.08 MIL/uL (4.20-5.40); RED CELL DISTRIBUTION WIDTH 14.3 % (11.6-13.7); WHITE BLOOD COUNT (AUTO) 9.3 K/uL (4.8-10.8)
[2019-09-16 23:07] LABS: ALBUMIN 3.2 g/dL (3.4-5.0); ANION GAP 9.9 (8-16); CARBON DIOXIDE 26.8 mmol/L (21-32); CREATININE 0.6 mg/dL (0.6-1.3); POTASSIUM 3.7 mmol/L (3.5-5.1); TOTAL BILIRUBIN 0.3 mg/dL (0.0-1.0)
--- NOTE | 2019-09-16 23:18 | NUR ---
URINE COLLECTED AND SENT TO LAB.
[2019-09-16 23:30] LABS: APPEARANCE,URINE CLEAR (CLEAR); BILIRUBIN,URINE NEGATIVE (NEGATIVE); BLOOD, URINE NEGATIVE (NEGATIVE); COLOR,URINE YELLOW (YELLOW); LEUKOCYTE ESTERASE ,URINE 1+ (NEGATIVE); NITRITE, URINE POSITIVE (NEGATIVE); UGLUCOSE NEGATIVE (NEGATIVE)
[2019-09-16 23:43] LABS: RBC,URINE 0-5 /HPF (0-5)
[2019-09-17 00:25] VITALS: BP 140/74
--- NOTE | 2019-09-17 00:25 | NUR ---
Patient discharged with v/s stable. Written and verbal after care instructions given and explained. Patient alert, oriented and verbalized understanding of instructions. Ambulatory with steady gait. All questions addressed prior to discharge. ID band removed. Patient advised to follow up with PMD. Rx of BACTRIM, AND VALIUM given. Patient educated on indication of medication including possible reaction and side effects. Opportunity to ask questions provided and answered.
== END 2019-09-17 00:25 | disposition home or self-care (01) ==
LOC: MED 21:20
DX: N39.0 Urinary tract infection, site not specified (principal); I10 Essential (primary) hypertension; Z98.84 Bariatric surgery status; Z79.899 Other long term (current) drug therapy; Z88.6 Allergy status to analgesic agent; Z88.8 Allergy status to other drugs, medicaments and biological substances
CPT/HCPCS: 36415; 80053; 81001; 83690; 85025; 87086; 99283

== ENCOUNTER 2019-09-21 17:48 | Emergency (ER) | payer MEDICAID ==
[~2019-09-21] VITALS: Ht 170.2 cm; Wt 114.3 kg
[2019-09-21 18:25] VITALS: BP 103/52
[2019-09-21] MEDS ORDERED: KETOROLAC 30 MG/ML VIAL IM ONE (20:05)
--- NOTE | 2019-09-21 20:15 | NUR ---
58/F PRESENTS TO ED, C/O MID-LOWER BACK PAIN, X4 DAYS. PT ALSO REPORTS BURNING WITH URINATION. PT CURRENTLY TAKING ABX FOR UTI. PT AWAKE AND ALERT, SKIN NORMAL COLOR WARM AND DRY, RR EVEN AND UNLABORED. HX HTN, LYMPHEDEMA, HLD, GERD RX OMEPRAZOLE, HTN MEDS, LASIX, STOOL SOFTENER, ABX
[2019-09-21 20:40] VITALS: BP 113/86
--- NOTE | 2019-09-21 20:40 | NUR ---
Patient discharged with v/s stable. Pt states relief with 0/10 pain. Written and verbal after care instructions given and explained. Patient alert, oriented and verbalized understanding of instructions. Ambulatory with steady gait. All questions addressed prior to discharge. ID band removed. Patient advised to follow up with PMD and when to return to ER. Rx of Flexeril given. Patient educated on indication of medication including possible reaction and side effects. Opportunity to ask questions provided and answered.
== END 2019-09-21 20:40 | disposition home or self-care (01) ==
LOC: MED 17:48
DX: S39.012A Strain of muscle, fascia and tendon of lower back, initial encounter (principal); I10 Essential (primary) hypertension; Z88.6 Allergy status to analgesic agent; Z79.899 Other long term (current) drug therapy; X58.XXXA Exposure to other specified factors, initial encounter; Y93.89 Activity, other specified; Y92.89 Other specified places as the place of occurrence of the external cause; Y99.8 Other external cause status
CPT/HCPCS: 96372; 99283; J1885

== ENCOUNTER 2020-03-06 16:18 | Emergency (ER) | payer OTHER, SELFPAY ==
[~2020-03-06] VITALS: Ht 170.2 cm; Wt 115.7 kg
[2020-03-06 16:30] VITALS: BP 122/67
--- NOTE | 2020-03-06 16:46 | NUR ---
C/O COUGH, FEVER,HEADACHE, SORE THROAT,NAUSEA X 3 DAYS. SISTER HAS COVID +. TEMP 98.1, P 57, R 18, O2 SAT 96% BP 122/67 AT THIS TIME. MED HX: BORDERLINE DM, HTN,BRADYCARDIA, ABDOMINAL SURGERY
--- NOTE | 2020-03-06 17:20 | NUR ---
COVID SWAB GIVEN TO LAB
[2020-03-06 17:34] VITALS: BP 122/67
--- NOTE | 2020-03-06 17:34 | NUR ---
Patient discharged with v/s stable. Written and verbal after care instructions given and explained. Patient alert, oriented and verbalized understanding of instructions. Ambulatory with steady gait. All questions addressed prior to discharge. ID band removed. Patient advised to follow up with PMD. Rx of ACETAMINOPHEN & PROMETHAZINE given. Patient educated on indication of medication including possible reaction and side effects. Opportunity to ask questions provided and answered.
== END 2020-03-06 17:34 | disposition home or self-care (01) ==
LOC: MED 16:18 → EEVIPCON 16:18 → MED 17:34
DX: B34.9 Viral infection, unspecified (principal); I10 Essential (primary) hypertension; K21.9 Gastro-esophageal reflux disease without esophagitis; Z88.6 Allergy status to analgesic agent; Z79.899 Other long term (current) drug therapy; Z20.828 Contact with and (suspected) exposure to other viral communicable diseases
CPT/HCPCS: 99283; U0003

== ENCOUNTER 2020-08-08 20:30 | Emergency (ER) | payer OTHER, SELFPAY ==
[~2020-08-08] VITALS: Ht 170.2 cm; Wt 116.1 kg
[~2020-08-08 20:30] MED LIST changes: +AMLO-3 PO; -AMLO5TAB6 PO
[2020-08-08 20:45] VITALS: BP 161/76
--- NOTE | 2020-08-08 20:48 | NUR ---
TO LOBBY A/W BED AMBULATORY
[2020-08-08 23:45] VITALS: BP 161/76
--- NOTE | 2020-08-09 00:10 | NUR ---
NO NURSING INTERVENTIONS NEEDED
--- NOTE | 2020-08-09 00:10 | NUR ---
Patient discharged with v/s stable. Written and verbal after care instructions given and explained. Patient alert, oriented and verbalized understanding of instructions. Ambulatory with steady gait. All questions addressed prior to discharge. ID band removed. Patient advised to follow up with PMD. Rx of KEFLE given. Patient educated on indication of medication including possible reaction and side effects. Opportunity to ask questions provided and answered.
== END 2020-08-08 23:45 | disposition home or self-care (01) ==
LOC: MED 20:30
DX: T50.905A Adverse effect of unspecified drugs, medicaments and biological substances, initial encounter (principal); N39.0 Urinary tract infection, site not specified; K21.9 Gastro-esophageal reflux disease without esophagitis; I10 Essential (primary) hypertension; Z98.84 Bariatric surgery status; Z79.899 Other long term (current) drug therapy; Z88.6 Allergy status to analgesic agent; Y92.89 Other specified places as the place of occurrence of the external cause
CPT/HCPCS: 81002; 99283

== ENCOUNTER 2021-08-24 16:30 | Emergency (ER) | payer OTHER, SELFPAY ==
[~2021-08-24] VITALS: Ht 170.2 cm; Wt 123.4 kg
[~2021-08-24 16:30] MED LIST changes: -LISI-420 PO; +LISI-487 PO; +OMEP-278 PO; -OMEP20TC12 PO
[2021-08-24 17:20] VITALS: BP 145/75
--- NOTE | 2021-08-24 17:33 | NUR ---
pt ambulated to bed 03
--- NOTE | 2021-08-24 17:39 | NUR ---
60 y/o F BIB self from home c/o throat pain x 1 day. Patient A&Ox4, ambulatory, reports throat pain /, "sore/intermittent," radiating from throat down sternum and to upper back. Pt states saw PCP and was prescribed antibiotics for dysuria. Pt denies dysuria, fever, chills, headache, dizziness, blurry vision, abdominal pain, fever, chills, nausea, vomiting, diarrhea, urinary symptoms, cold-like symptoms. Denies sick households at home. Pt denies difficulty swallowing; normal appetite with good PO and fluid intake. Reports [place] this morning without relief to symptoms. Pt into a gown; urine sample collected. Bed locked in lowest position, side rails x 1. pmh: gout, gastric bypass, htn, lymphedema allergy: aspirin, ibuprofen (states she cant take due to sx) med: lipitor, lisinopril, potassium pills, iron pills
--- NOTE | 2021-08-24 17:39 | NUR ---
NILE Wheatley is evaluating pt at bedside
--- NOTE | 2021-08-24 17:55 | NUR ---
Lab at bedside
--- NOTE | 2021-08-24 17:55 | NUR ---
EMT at bedside for EKG
[2021-08-24 18:05] LABS: BASOPHILS % (AUTO) 0.4 % (0.0-2.0); EOSINOPHILS # (AUTO) 0.3 K/uL (0-0.4); EOSINOPHILS % (AUTO) 3.4 % (0.0-4.0); HEMATOCRIT 38.2 % (36-48); HEMOGLOBIN 12.5 g/dL (12.0-16.0); LYMPHOCYTES # (AUTO) 2.5 K/uL (2.5-16.5); MEAN CORPUSCULAR HEMOGLOBIN 30 pg (27-31); MEAN CORPUSCULAR HGB CONC 33 g/dL (33-37); MEAN CORPUSCULAR VOLUME 90.1 fL (80-94); MONOCYTES # (AUTO) 0.7 K/uL (0.8-1.0); MONOCYTES % (AUTO) 7.8 % (1.7-9.3); NEUTROPHILS % (AUTO) 58.4 % (42.2-75.2); PLATELET COUNT (AUTO) 235 K/uL (140-450); RED BLOOD CELL COUNT(AUTO) 4.24 MIL/uL (4.20-5.40); RED CELL DISTRIBUTION WIDTH 13.5 % (11.6-13.7); WHITE BLOOD COUNT (AUTO) 8.5 K/uL (4.8-10.8)
[2021-08-24 18:19] LABS: ANION GAP 8.9 (8-16); CARBON DIOXIDE 29.2 mmol/L (21-32); CREATININE 0.7 mg/dL (0.6-1.3); POTASSIUM 4.1 mmol/L (3.5-5.1)
--- NOTE | 2021-08-24 18:43 | NUR ---
NILE Wheatley is reevaluating pt at bedside
[2021-08-24] MEDS ORDERED: CEPH-588 PO (18:50)
[2021-08-24 19:20] VITALS: BP 142/66
== END 2021-08-24 19:21 | disposition home or self-care (01) ==
LOC: MED 16:30
DX: R07.89 Other chest pain (principal); N39.0 Urinary tract infection, site not specified; K21.9 Gastro-esophageal reflux disease without esophagitis; I10 Essential (primary) hypertension; Z79.899 Other long term (current) drug therapy; Z88.6 Allergy status to analgesic agent; Z88.8 Allergy status to other drugs, medicaments and biological substances
CPT/HCPCS: 36415; 71045; 80048; 81002; 83690; 84484; 85025; 93005; 99285

== ENCOUNTER 2023-01-02 10:22 | Emergency (ER) | payer OTHER ==
[~2023-01-02] VITALS: Ht 170.2 cm; Wt 133.4 kg
[~2023-01-02 10:22] MED LIST changes: -AMLO-3 PO; -ATOR10TA PO; +ATOR40TA PO; -AZIT250T3 PO; -FIO PO; +FURO-570 PO; -LISI-487 PO; -OMEP-278 PO; +POTA10TA70 PO
[2023-01-02 10:30] VITALS: BP 123/63
--- NOTE | 2023-01-02 10:44 | NUR ---
TO ER [facility]
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
[2023-01-02 11:15] LABS: APPEARANCE,URINE CLEAR (CLEAR); BILIRUBIN,URINE 1+ (NEGATIVE); BLOOD, URINE NEGATIVE (NEGATIVE); COLOR,URINE YELLOW (YELLOW); LEUKOCYTE ESTERASE ,URINE TRACE (NEGATIVE); NITRITE, URINE NEGATIVE (NEGATIVE); PH,URINE 5.5 (5.0-9.0); UGLUCOSE NEGATIVE (NEGATIVE)
[2023-01-02] MEDS ORDERED: LID5T TP (11:30)
[2023-01-02] MEDS ORDERED: CYCL-711 PO (11:30)
[2023-01-02 12:02] LABS: RBC,URINE 11-20 (MOD) /HPF (0-5)
[2023-01-02 12:06] VITALS: BP 117/66
[2023-01-02] MEDS ORDERED: CEPH-588 PO (12:09)
--- NOTE | 2023-01-02 12:09 | NUR ---
Patient discharged with v/s stable. Written and verbal after care instructions given and explained. Patient alert, oriented and verbalized understanding of instructions. Ambulatory with steady gait. All questions addressed prior to discharge. ID band removed. Patient advised to follow up with PMD. Rx of flexeril, lidoderm patch given. Patient educated on indication of medication including possible reaction and side effects. Opportunity to ask questions provided and answered.
== END 2023-01-02 12:06 | disposition home or self-care (01) ==
LOC: MED 10:22
DX: N39.0 Urinary tract infection, site not specified (principal); G89.29 Other chronic pain; M54.50 Low back pain, unspecified; K21.9 Gastro-esophageal reflux disease without esophagitis; I10 Essential (primary) hypertension; Z79.899 Other long term (current) drug therapy; Z79.2 Long term (current) use of antibiotics; Z88.6 Allergy status to analgesic agent
CPT/HCPCS: 72100; 81001; 87086; 99284

== ENCOUNTER 2023-02-02 15:02 | Emergency (ER) | payer OTHER ==
[~2023-02-02] VITALS: Ht 170.2 cm; Wt 132.9 kg
[~2023-02-02 15:02] MED LIST changes: +CEPH-588 PO; +CYCL-711 PO; +LID5T TP
--- NOTE | 2023-02-02 15:09 | NUR ---
PT AMB TO BED 5
[2023-02-02 15:14] VITALS: BP 118/37
--- NOTE | 2023-02-02 15:33 | NUR ---
62YO F PRESENTS W/NAUSEA, VOMITING, FEVER, WEAK, TIRED, BILAT LEG SWELLING X 3DAYS. DENIES NO CHANGES IN DAILY ROUTINE, NO SICK CONTACTS, DIARRHEA, DIZZINESS, CP OR SOB. BILAT NON PITTING EDEMA NOTED, AMBULATORY GAIT STEADY, PT STATES SIMILAR SYMPTOMS TO PREVIOUS FLARE UP OF LYMPEDEMA. A&OX4, ON ENERGY MANAGEMENT SPECIALIST, SAFETY MAINTAINED. HX: LYMPEDEMA, GOUT, BRADYCARDIA ALLLERGY: ASPIRIN, IBUPROFEN
[2023-02-02 15:51] LABS: BASOPHILS % (AUTO) 0.6 % (0.0-2.0); EOSINOPHILS # (AUTO) 0.3 K/uL (0-0.4); EOSINOPHILS % (AUTO) 3.2 % (0.0-4.0); HEMOGLOBIN 12.9 g/dL (12.0-16.0); LYMPHOCYTES # (AUTO) 2.1 K/uL (2.5-16.5); LYMPHOCYTES % (AUTO) 27.3 % (20.5-51.1); MEAN CORPUSCULAR HEMOGLOBIN 29 pg (27-31); MEAN CORPUSCULAR HGB CONC 33 g/dL (33-37); MEAN CORPUSCULAR VOLUME 86.6 fL (80-94); MONOCYTES # (AUTO) 0.8 K/uL (0.8-1.0); MONOCYTES % (AUTO) 10.5 % (1.7-9.3); NEUTROPHILS # (AUTO) 4.6 K/uL (1.8-7.7); NEUTROPHILS % (AUTO) 58.4 % (42.2-75.2); PLATELET COUNT (AUTO) 235 K/uL (140-450); RED CELL DISTRIBUTION WIDTH 14.7 % (11.6-13.7); WHITE BLOOD COUNT (AUTO) 7.8 K/uL (4.8-10.8)
--- NOTE | 2023-02-02 16:02 | NUR ---
MD FARRIS AT BEDSIDE FOR EVALUATION
[2023-02-02] MEDS ORDERED: ACETAMINOPHEN EXTRA STRENGTH 500 MG TAB PO ONE (16:10)
[2023-02-02] MEDS ORDERED: FUROSEMIDE 40 MG TAB PO ONE (16:10)
[2023-02-02] MEDS ORDERED: ONDANSETRON 4 MG ODT PO ONE (16:10)
[2023-02-02 16:17] LABS: ALBUMIN 3.4 g/dL (3.4-5.0); ANION GAP 9.9 (8-16); ASPARTATE AMINOTRANSFERASE 26 U/L (15-37); CARBON DIOXIDE 31.6 mmol/L (21-32); CHLORIDE 105 mmol/L (98-107); CREATININE 0.8 mg/dL (0.6-1.3); GFR ARICAN-AMERICAN 94 mL/min (>90); GLUCOSE 92 mg/dL (74-106); POTASSIUM 3.5 mmol/L (3.5-5.1); SODIUM SERUM 143 mmol/L (136-145); TOTAL BILIRUBIN 0.4 mg/dL (0.0-1.0); UREA NITROGEN, BLOOD 9 mg/dL (7-18)
[2023-02-02] MEDS ORDERED: ONDA-188 SL (18:03)
[2023-02-02] MEDS ORDERED: ACET-10509 PO (18:03)
[2023-02-02 18:05] LABS: APPEARANCE,URINE CLEAR (CLEAR); BILIRUBIN,URINE NEGATIVE (NEGATIVE); BLOOD, URINE NEGATIVE (NEGATIVE); COLOR,URINE YELLOW (YELLOW); LEUKOCYTE ESTERASE ,URINE TRACE (NEGATIVE); NITRITE, URINE NEGATIVE (NEGATIVE); UGLUCOSE NEGATIVE (NEGATIVE)
[2023-02-02] MEDS ORDERED: NITR100C7 PO (18:25)
[2023-02-02 18:34] VITALS: BP 118/37
--- NOTE | 2023-02-02 18:35 | NUR ---
Patient discharged with v/s stable. Written and verbal after care instructions given and explained. Patient alert, oriented and verbalized understanding of instructions. Ambulatory with steady gait. All questions addressed prior to discharge. ID band removed. Patient advised to follow up with PMD. Rx of TYLENOL, ZOFRAN, MACROBID (SENT) given. Patient educated on indication of medication including possible reaction and side effects. Opportunity to ask questions provided and answered.
[2023-02-03] MEDS ORDERED: CEPH-588 PO (20:17)
== END 2023-02-02 18:35 | disposition home or self-care (01) ==
LOC: MED 15:02
DX: M79.89 Other specified soft tissue disorders (principal); R06.02 Shortness of breath; R53.1 Weakness; R51.9 Headache, unspecified; K21.9 Gastro-esophageal reflux disease without esophagitis; I12.9 Hypertensive chronic kidney disease with stage 1 through stage 4 chronic kidney disease, or unspecified chronic kidney disease; N18.9 Chronic kidney disease, unspecified; Z90.49 Acquired absence of other specified parts of digestive tract; Z98.890 Other specified postprocedural states; Z98.84 Bariatric surgery status; Z88.6 Allergy status to analgesic agent; Z88.8 Allergy status to other drugs, medicaments and biological substances; Z79.899 Other long term (current) drug therapy
CPT/HCPCS: 36415; 71045; 80053; 81003; 84484; 85025; 85379; 93005; 99285; Q0092; Q0162

== ENCOUNTER 2023-02-05 19:44 | Observation (INO) | payer OTHER ==
[~2023-02-05] VITALS: Ht 170.2 cm; Wt 99.3 kg
[~2023-02-05 19:44] MED LIST changes: +ACET-10509 PO; +NITR100C7 PO; +ONDA-188 SL
[2023-02-05 20:17] VITALS: BP 130/76
--- NOTE | 2023-02-05 21:48 | NUR ---
left arm numbness and feel weird, shooting pain going up thr upper arm, feel headache and feeling cesar heavy.
--- NOTE | 2023-02-05 21:48 | NUR ---
PT AMB TO BED #12
--- NOTE | 2023-02-05 22:39 | NUR ---
pt is resting waiting to be seen by
--- NOTE | 2023-02-05 23:19 | NUR ---
pt went to ct
[2023-02-05] MEDS ORDERED: diazePAM 5 MG TAB PO ONE (23:20)
[2023-02-05 23:32] LABS: BASOPHILS # (AUTO) 0.1 K/uL (0.00-0.22); BASOPHILS % (AUTO) 0.6 % (0.0-2.0); EOSINOPHILS # (AUTO) 0.3 K/uL (0-0.4); EOSINOPHILS % (AUTO) 3.4 % (0.0-4.0); HEMATOCRIT 39.1 % (36-48); HEMOGLOBIN 12.8 g/dL (12.0-16.0); LYMPHOCYTES # (AUTO) 1.8 K/uL (2.5-16.5); LYMPHOCYTES % (AUTO) 20.9 % (20.5-51.1); MEAN CORPUSCULAR HEMOGLOBIN 29 pg (27-31); MEAN CORPUSCULAR HGB CONC 33 g/dL (33-37); MEAN CORPUSCULAR VOLUME 87.1 fL (80-94); MONOCYTES # (AUTO) 0.7 K/uL (0.8-1.0); NEUTROPHILS # (AUTO) 5.9 K/uL (1.8-7.7); NEUTROPHILS % (AUTO) 67.1 % (42.2-75.2); PLATELET COUNT (AUTO) 231 K/uL (140-450); RED BLOOD CELL COUNT(AUTO) 4.48 MIL/uL (4.20-5.40); RED CELL DISTRIBUTION WIDTH 14.4 % (11.6-13.7); WHITE BLOOD COUNT (AUTO) 8.7 K/uL (4.8-10.8)
[2023-02-05 23:54] LABS: ALBUMIN 3.4 g/dL (3.4-5.0); ANION GAP 10.1 (8-16); ASPARTATE AMINOTRANSFERASE 28 U/L (15-37); CARBON DIOXIDE 32.4 mmol/L (21-32); CHLORIDE 104 mmol/L (98-107); CREATININE 0.9 mg/dL (0.6-1.3); GFR ARICAN-AMERICAN 82 mL/min (>90); GLUCOSE 95 mg/dL (74-106); POTASSIUM 3.5 mmol/L (3.5-5.1); SODIUM SERUM 143 mmol/L (136-145); TOTAL BILIRUBIN 0.4 mg/dL (0.0-1.0); UREA NITROGEN, BLOOD 10 mg/dL (7-18)
--- NOTE | 2023-02-06 00:10 | NUR ---
pt complaning about the pain in the arm
[2023-02-06] MEDS ORDERED: MORPHINE SULFATE 4 MG/ML SYR IM ONE (01:05)
--- NOTE | 2023-02-06 02:48 | NUR ---
FARZAD ADAM DAUGHTER CALLED REQUESTING UPDATE [phone], WILL ARRANGE FOR TRANSPORT
--- NOTE | 2023-02-06 04:25 | NUR ---
JEREMY COLLECTED AND SENT TO LAB
[2023-02-06] MEDS ORDERED: ONDANSETRON 4 MG/2 ML VIAL IVP PRN (06:25)
[2023-02-06] MEDS ORDERED: HYDROcodone/APAP 5/325 MG 1 TAB TAB PO PRN ×2 (06:25)
[2023-02-06] MEDS ORDERED: CLOPIDOGREL 75 MG TAB PO SCH (06:56)
[2023-02-06] MEDS ORDERED: ATORVASTATIN 20 MG TAB PO SCH (06:57)
--- NOTE | 2023-02-06 07:30 | NUR ---
ASSUMED PATIENT CARE, CONCUR TO PREVIOUS NURSING ASSESSMENTS.
--- NOTE | 2023-02-06 07:31 | NUR ---
SPOKE TO DR FLORES AND HE SAID TO PUT THE PATIENT IN OBSERVATION
--- NOTE | 2023-02-06 08:15 | NUR ---
ADMITTED FROM ER VIA [facility]. A & O X4. SPEECH CLEAR. NO C/O PAIN. NO SOB, NOTED. SKIN WARM, DRY, AND INTACT. PITTING EDEMA BLE 3+. ELEVATED WITH PILLOWS. EXPLAINED DIAGNOSIS, PLAN OF CARE, PAIN MANAGEMENT TEACHING, USE OF CALL LIGHT/BED/TV/BATHROOM. VERBALIZED UNDERSTANDING. CALL LIGHT WITHIN REACH.
--- NOTE | 2023-02-06 08:26 | NUR ---
DISPO AND MEDICAL DECISION MAKING, INPATIENT ADMISSION FOR FURTHER MANAGEMENT. PATIENT CARE REPORT ENDORSED TO SHANE MOREL.
[2023-02-06 08:30] VITALS: BP 107/52
--- NOTE | 2023-02-06 08:48 | NUR ---
PATIENT HAS BEEN SCREENED AND CATEGORIZED LOW NUTRITION RISK. PATIENT WILL BE SEEN WITHIN 7 DAYS OF ADMISSION. 02/13/[address]
[2023-02-06] MEDS: FUROSEMIDE 40 MG TAB PO SCH ×2 (09:31→20:14)
[2023-02-06] MEDS: ENOXAPARIN 40 MG/0.4 ML SYR SUBQ SCH (09:32)
[2023-02-06 12:00] VITALS: BP 105/42
[2023-02-06] MEDS: MORPHINE SULFATE 2 MG/ML SYR IVP PRN ×2 (14:53→20:15)
--- NOTE | 2023-02-06 14:53 | NUR ---
C/O LEFT CHEST PAIN 05/19. NO ACUTE DISTRESS NOTED. DR. FLORES WAS AWARE. MEDICATED WITH MORPHINE 1 MG IVP PER MD ORDER FOR PAIN GIVEN BY DEEDEE WALDROP. MORPHINE 1 MG WASTED BY DEEDEE WALDROP AND IT WAS WITNESSED BY ME.
[2023-02-06 16:00] VITALS: BP 121/41
--- NOTE | 2023-02-06 19:15 | NUR ---
REPORT GIVEN TO ISAK BURROUGHS IN STABLE CONDITION.
[2023-02-06 20:00] VITALS: BP 110/63
--- NOTE | 2023-02-06 20:00 | NUR ---
RECEIVED IN BED ASSESSMENT COMPLETED PLAN OF CARE REVIEWED ORIENTED TO CALL LIGHT AND ADVISED TO CALL FOR ASSISTANCE NEEDED ENDORSES SHE IS IN PAIN AND WANTS MORPHINE WILL MEDICATE ORDERED PAIN 04/18 GENERAL BODY
[2023-02-07] VITALS: BP 108/58
--- NOTE | 2023-02-07 | NUR ---
NO CHANGES AT THIS TIME VSS WILL CONTINUE TO MONITOR AND ASSESS CALL LIGHT IN REACH
--- NOTE | 2023-02-07 01:35 | NUR ---
COMPLAINS OF GENERAL BODY PAIN MEDICATED WITH [facility]CO ORDERED
[2023-02-07 04:00] VITALS: BP 106/54
[2023-02-07 06:47] LABS: BASOPHILS % (AUTO) 0.3 % (0.0-2.0); EOSINOPHILS # (AUTO) 0.3 K/uL (0-0.4); EOSINOPHILS % (AUTO) 3.7 % (0.0-4.0); HEMATOCRIT 37.7 % (36-48); HEMOGLOBIN 12.6 g/dL (12.0-16.0); LYMPHOCYTES # (AUTO) 2.1 K/uL (2.5-16.5); LYMPHOCYTES % (AUTO) 27.1 % (20.5-51.1); MEAN CORPUSCULAR HEMOGLOBIN 29 pg (27-31); MEAN CORPUSCULAR HGB CONC 34 g/dL (33-37); MEAN CORPUSCULAR VOLUME 87.2 fL (80-94); MONOCYTES # (AUTO) 0.7 K/uL (0.8-1.0); MONOCYTES % (AUTO) 8.5 % (1.7-9.3); NEUTROPHILS # (AUTO) 4.6 K/uL (1.8-7.7); NEUTROPHILS % (AUTO) 60.4 % (42.2-75.2); PLATELET COUNT (AUTO) 207 K/uL (140-450); RED BLOOD CELL COUNT(AUTO) 4.32 MIL/uL (4.20-5.40); RED CELL DISTRIBUTION WIDTH 14.6 % (11.6-13.7); WHITE BLOOD COUNT (AUTO) 7.6 K/uL (4.8-10.8)
[2023-02-07 07:10] LABS: CARBON DIOXIDE 28.8 mmol/L (21-32); CREATININE 0.7 mg/dL (0.6-1.3); POTASSIUM 3.8 mmol/L (3.5-5.1)
[2023-02-07 08:00] VITALS: BP 121/73
[2023-02-07 08:40] VITALS: BP 134/112
[2023-02-07] MEDS: FUROSEMIDE 40 MG TAB PO SCH (09:15)
[2023-02-07] MEDS: ENOXAPARIN 40 MG/0.4 ML SYR SUBQ SCH (09:19)
--- NOTE | 2023-02-07 11:43 | NUR ---
Intact twenty gauge intravenous catheter tip removal from right antecubital space. Patient identification bracelet removal. She says she will get her street clothes and change independently for a 1215 p.m. departure when her friend arrives to pick her up.
--- NOTE | 2023-02-07 13:12 | NUR ---
Discussion about diagnosis, medication, and follow up given. Patient given a copy of all discharge instructions. Patient discharge with all belongings via [place] [address] of her friend.
[2023-02-07] MEDS: MORPHINE SULFATE 2 MG/ML SYR IVP PRN (13:16)
== END 2023-02-07 13:10 | disposition home or self-care (01) ==
LOC: MED 19:44 → MTU 02-06 06:50
PROVIDERS: ADMIT Internal Medicine; ATTEND Internal Medicine
DX: I13.0 Hypertensive heart and chronic kidney disease with heart failure and stage 1 through stage 4 chronic kidney disease, or unspecified chronic kidney disease (principal); Z20.822 Contact with and (suspected) exposure to COVID-19; I50.9 Heart failure, unspecified; N18.9 Chronic kidney disease, unspecified; M10.9 Gout, unspecified; I89.0 Lymphedema, not elsewhere classified; R00.1 Bradycardia, unspecified; E78.5 Hyperlipidemia, unspecified; K21.9 Gastro-esophageal reflux disease without esophagitis; Z79.899 Other long term (current) drug therapy
CPT/HCPCS: 36415; 70450; 71045; 80048; 80053; 83735; 84443; 84484; 85025; 87081; 87426; 96372; 96374; 96376; 99285; G0378; J1650; J2270

== ENCOUNTER 2024-01-01 18:33 | Emergency (ER) | payer OTHER ==
[~2024-01-01] VITALS: Ht 170.2 cm; Wt 127.0 kg
[~2024-01-01 18:33] MED LIST changes: +BACL10TA4 PO; -CEPH-588 PO; -CYCL-711 PO; -LID5T TP
[2024-01-01 18:44] VITALS: BP 92/57; PULSE 60; RESP 20; TEMP 97.2; O2SAT 97
[2024-01-01] MEDS ORDERED: ACET-10509 PO (19:17)
[2024-01-01] MEDS: methocarbamoL 500 MG TAB PO ONE (19:27)
[2024-01-01] MEDS: DEXAMETHASONE 10 MG/ML VIAL IM ONE (19:28)
[2024-01-01] MEDS ORDERED: METH-1681 PO (19:33)
[2024-01-01 19:45] VITALS: BP 112/62; PULSE 78; RESP 16; TEMP 98; O2SAT 99
== END 2024-01-01 19:45 | disposition home or self-care (01) ==
LOC: MED 18:33
DX: M54.30 Sciatica, unspecified side (principal); K21.9 Gastro-esophageal reflux disease without esophagitis; N18.9 Chronic kidney disease, unspecified; Z79.899 Other long term (current) drug therapy; Z79.82 Long term (current) use of aspirin; Z88.5 Allergy status to narcotic agent
CPT/HCPCS: 96372; 99283; J1100

== ENCOUNTER 2024-01-03 11:21 | Emergency (ER) | payer OTHER ==
[~2024-01-03] VITALS: Ht 170.2 cm; Wt 127.5 kg
[~2024-01-03 11:21] MED LIST changes: +METH-1681 PO
[2024-01-03 11:27] VITALS: BP 114/87; PULSE 96; RESP 17; TEMP 97.5; O2SAT 96
[2024-01-03] MEDS: MORPHINE SULFATE 4 MG/ML SYR IM ONE (12:00)
[2024-01-03 12:13] VITALS: BP 114/87; PULSE 96; RESP 17; TEMP 97.5; O2SAT 96
[2024-01-04] MEDS ORDERED: PRED20TA5 PO (05:48)
== END 2024-01-03 12:13 | disposition home or self-care (01) ==
LOC: MED 11:21
DX: M54.30 Sciatica, unspecified side (principal); K21.9 Gastro-esophageal reflux disease without esophagitis; N18.9 Chronic kidney disease, unspecified; Z79.82 Long term (current) use of aspirin; Z79.1 Long term (current) use of non-steroidal anti-inflammatories (NSAID); Z90.49 Acquired absence of other specified parts of digestive tract
CPT/HCPCS: 96372; 99283; J2270

== ENCOUNTER 2024-01-04 05:24 | Emergency (ER) | payer OTHER ==
[~2024-01-04] VITALS: Ht 170.2 cm; Wt 127.0 kg
[2024-01-04 05:28] VITALS: BP 143/95; PULSE 56; RESP 20; TEMP 97.9; O2SAT 96
[2024-01-04] MEDS ORDERED: PRED20TA5 PO (05:48)
[2024-01-04] MEDS: predniSONE 20 MG TAB PO ONE (05:55)
[2024-01-04] MEDS: MORPHINE SULFATE 4 MG/ML SYR IM ONE (05:55)
== END 2024-01-04 06:15 | disposition home or self-care (01) ==
LOC: MED 05:24
DX: M54.42 Lumbago with sciatica, left side (principal); K21.9 Gastro-esophageal reflux disease without esophagitis; N18.9 Chronic kidney disease, unspecified; Z79.899 Other long term (current) drug therapy; Z88.6 Allergy status to analgesic agent
CPT/HCPCS: 96372; 99283; J2270; J7512